=== PATIENT | male | born 1990 | race Caucasian/White ===

== ENCOUNTER 2024-10-01 08:56 | Emergency (ER) | payer SELFPAY ==
[~2024-10-01] VITALS: Ht 203.2 cm; Wt 122.3 kg
[2024-10-01 09:03] VITALS: TEMP 98.2
[2024-10-01 10:08] LABS: URINE APPEARANCE CLEAR (CLEAR/HAZY); URINE BLOOD NEGATIVE (NEGATIVE); URINE COLOR YELLOW (YELLOW); URINE GLUCOSE 3+ (NEGATIVE); URINE KETONE TRACE (NEGATIVE); URINE NITRATE NEGATIVE (NEGATIVE); URINE PROTEIN(semi-quant) NEGATIVE (NEGATIVE); URINE UROBILINOGEN 0.2 E.U/dL (0.2-1.0)
[2024-10-01 10:09] LABS: BASO % 0.7 % (0.0-2.0); EOS # 0.1 K/mm3 (0.0-0.7); EOS % 1.7 % (0.0-4.0); GRAN # 3.8 K/mm3 (1.4-6.5); GRAN % 63.7 % (42.2-75.2); HEMOGLOBIN 15.5 g/dl (13.5-18.0); LYMPH # 1.5 K/mm3 (1.2-3.4); MEAN CELL VOLUME 86 fl (80.0-100.0); MEAN CORPUSCULAR HEMOGLOBIN 30 pg (27-31); MEAN CORPUSCULAR HGB CONC 35 g/dl (33.0-37.0); MEAN PLATELET VOLUME 10.8 fl (7.4-10.4); MONO # 0.5 K/mm3 (0.1-0.6); MONO % 7.6 % (1.7-9.3); PLATELET COUNT 239 K/mm3 (130-400); REDCELL DISTRIBUTION WIDTH-CV 11.9 % (11.5-14.5)
[2024-10-01 10:18] LABS: COLLECTION METHOD CLEAN CATCH
[2024-10-01 10:21] LABS: BILIRUBIN,TOTAL 0.4 mg/dL (0.2-1.2); C-REACTIVE PROTEIN 0.21 mg/dL (0.00-0.50); CALCIUM 9.1 mg/dL (8.4-10.2); CREATININE, serum 0.88 mg/dL (0.72-1.25); POTASSIUM 4.1 mEq/L (3.5-4.5)
[2024-10-01] MEDS ORDERED: cefTRIAXone 1 G in Water For Injection,Sterile 10 ML IV ONE (11:15)
[2024-10-01] MEDS ORDERED: HYDROcodone/Acetaminophen 7.5-325 MG TAB PO ONE (11:15)
[2024-10-01] MEDS ORDERED: CEPHALEXIN500 M1 PO (11:29)
[2024-10-01 12:06] VITALS: BP 132/101; PULSE 57
--- NOTE | 2024-10-01 16:01 | NUR ---
SW called to ED by nurse providing patient wanted to speak to FREDERICK about a financial concern. Patient states that he does not have insurance and is currently living in his girl friends home. Patient states he is new to the area and just needs some assistance. FREDERICK had patient complete financial assistance application, emailed finance team at [facility] to provide patient information, and provided completed application to FREDERICK case management leader.
== END 2024-10-01 12:15 | disposition home or self-care (01) ==
LOC: COL.ER 08:56
PROVIDERS: Emergency Medicine
DX: L08.9 Local infection of the skin and subcutaneous tissue, unspecified (principal); E11.65 Type 2 diabetes mellitus with hyperglycemia; Z79.4 Long term (current) use of insulin; Z88.2 Allergy status to sulfonamides
CPT/HCPCS: J0696

== ENCOUNTER 2024-10-31 23:12 | Emergency (ER) | payer SELFPAY ==
[~2024-10-31] VITALS: Ht 203.2 cm; Wt 120.5 kg
[~2024-10-31 23:12] MED LIST: CEPHALEXIN500 M1 PO
[2024-10-31 23:17] VITALS: TEMP 98.1
[2024-10-31] MEDS ORDERED: Ketorolac 30 MG/ML VIAL IM ONE (23:30)
[2024-10-31] MEDS ORDERED: FLEXERIL 1010 MG/TAB PO (23:41)
[2024-10-31 23:52] VITALS: BP 140/81; PULSE 105
== END 2024-10-31 23:52 | disposition home or self-care (01) ==
LOC: COL.ER 23:12
DX: S20.211A Contusion of right front wall of thorax, initial encounter (principal); Z95.5 Presence of coronary angioplasty implant and graft; W22.8XXA Striking against or struck by other objects, initial encounter; Y92.524 Gas station as the place of occurrence of the external cause
CPT/HCPCS: J1885